=== PATIENT | female | born 1965 | race Caucasian/White ===

== ENCOUNTER → 2025-06-14 | Outpatient (REF) | payer MEDICARE ==
[~2025-06-14] MED LIST: REGADENOSON 0.4 MG/5 ML SYR IV ONE
== END ==
LOC: NM 12:24
PROVIDERS: ATTEND Internal Medicine Cardiovascular Disease
DX: R00.2 Palpitations (principal); I10 Essential (primary) hypertension
CPT/HCPCS: 78452; 93017; A9502; J2785